=== PATIENT | male | born 1955 | race Caucasian/White ===

== ENCOUNTER 2017-06-20 02:05 | Emergency (ER) | payer OTHER ==
[~2017-06-20] VITALS: Ht 188 cm; Wt 130.2 kg
[2017-06-20 02:17] VITALS: Ht 188 cm; Wt 130.2 kg
[2017-06-20 03:20] VITALS: BP 148/88
== END 2017-06-20 03:20 | disposition home or self-care (01) ==
LOC: ED 02:05
DX: L91.8 Other hypertrophic disorders of the skin (principal); E11.9 Type 2 diabetes mellitus without complications